=== PATIENT | male | born 2000 | race Caucasian/White ===

== ENCOUNTER 2023-07-23 07:08 | Emergency (ER) | payer MEDICAID ==
[2023-07-23 07:33] VITALS: BP 151/101; PULSE 106
== END 2023-07-23 07:50 | disposition home or self-care (01) ==
LOC: JP.ED 07:08
DX: L60.0 Ingrowing nail (principal); E66.9 Obesity, unspecified; Z68.43 Body mass index [BMI] 50.0-59.9, adult
CPT/HCPCS: 99283